=== PATIENT | female | born 1930 | race Caucasian/White ===

== ENCOUNTER 2017-08-28 07:05 | Observation (INO) | payer MEDICARE, BC ==
[2017-08-28] MEDS ORDERED: HYDROmorphone 1 MG/ML Syringe IVPUSH STA (08:35)
--- NOTE | 2017-08-28 08:41 | EDM.PDOC ---
ED HPI GENERAL MEDICAL PROBLEM - General Chief Complaint: Lower Extremity Injury/Pain Stated Complaint: ER Time Seen by Provider: 08/28/17 07:05 Source of Information: Reports: Patient, EMS, EMS Notes Reviewed History Limitations: Reports: No Limitations - History of Present Illness INITIAL COMMENTS - FREE TEXT/NARRATIVE: Patient is brought into the emergency department this morning by EMS for left hip pain. Patient states that she fell approximately 3-4 days ago onto her left hip she tripped over grocery bags that were on the floor. She was able to get up and ambulate rate after the injury. It has been increasing in pain since then. This morning the pain was unbearable and called EMS and transported here. Patient was ambulatory on scene and walked to the cot. In route patient was given medication for her discomfort. Patient denies any shortness of breath dizziness lightheadedness denies any warmth to that extremity or fever. Severity: Moderate Improves with: Reports: Immobilization Worsens with: Reports: Movement Left Hip Pain Score (Numeric/FACES): 5 - Related Data Allergies Allergy/AdvReac Type Severity Reaction Status Date / Time atorvastatin AdvReac Dizziness Verified 08/28/17 08:01 Home Meds: Home Meds Aspirin/Calcium Carbonate/Mag [Aspirin Buffered] 325 mg PO DAILY 04/21/14 [ History] Calcium Carbonate/Vitamin D3 [Calcium 600-Vit D3 400 Tablet] 1 tab PO DAILY [History] Furosemide [Lasix] 20 mg PO DAILY 04/21/14 [History] Multivitamin [Multi-Vitamin Daily] 1 tab PO DAILY 04/21/14 [History] Simvastatin [Zocor] 20 mg PO DAILY 04/21/14 [History] Carboxymethylcellulos/Glycerin [Refresh Optive] 1 drop EYEBOTH DAILY PRN [History] Omeprazole 20 mg PO DAILY 08/28/17 [History] Polyethylene Glycol 3350 [MiraLAX] 17 gm PO DAILY PRN 08/28/17 [History] Past Medical History Cardiovascular History: Reports: High Cholesterol, Pacemaker Other Gastrointestinal History: dysphagia Social & Family History - Tobacco Use Smoking Status *Q: Never Smoker Second Hand Smoke Exposure: No - Alcohol Use Days Per Week of Alcohol Use: 0 - Recreational Drug Use Recreational Drug Use: No Review of Systems - Review of Systems Review Of Systems: See Below Constitutional: Reports: No Symptoms Eyes: Reports: No Symptoms Ears: Reports: No Symptoms Nose: Reports: No Symptoms Mouth/Throat: Reports: No Symptoms Respiratory: Reports: No Symptoms Cardiovascular: Reports: No Symptoms GI/Abdominal: Reports: No Symptoms Genitourinary: Reports: No Symptoms Musculoskeletal: Reports: Muscle Pain (left hip pain. ) Skin: Reports: No Symptoms Neurological: Reports: No Symptoms Psychiatric: Reports: No Symptoms ED EXAM, GENERAL - Physical Exam Exam: See Below Exam Limited By: No Limitations General Appearance: Alert, No Apparent Distress Neck: Normal Inspection, Supple, Non-Tender Respiratory/Chest: No Respiratory Distress, Lungs Clear, Normal Breath Sounds, No Accessory Muscle Use Cardiovascular: Normal Peripheral Pulses, Regular Rate, Rhythm Extremities: Normal Inspection, Normal Capillary Refill, Leg Pain (left hip pain. Tenderness upon palpation, ROM intact, CMS intact. No redness or swelling noted). No: Slow Capillary Refill, Joint Swelling, Increased Warmth, Mottled, Pallor, Redness Neurological: Alert, Oriented, Normal Reflexes Psychiatric: Normal Affect, Normal Mood Skin Exam: Warm, Dry, Intact, Normal Color Course - Vital Signs Last Recorded V/S: Last Vital Signs Temp 36.3 C 08/28/17 10:41 Pulse 65 08/28/17 10:41 Resp 16 08/28/17 10:41 BP 130/68 08/28/17 10:41 Pulse Ox 97 08/28/17 10:41 - Orders/Labs/Meds Orders: Active Orders 24 hr Category Date Time Status Hip Min 2V or 3V w Pelvis Lt [CR] Stat Exams 08/28/17 07:33 Taken Medication Orders Acetaminophen (Tylenol) 650 mg PO Q4H PRN PRN Reason: Pain (Mild 1-3)/fever Hydrocodone Bitart/Acetaminophen ([place] 325-5 Mg) 1 tab PO Q4H PRN PRN Reason: Pain Artificial Tears (Tears Naturale Free) 0 each EYEBOTH DAILY PRN PRN Reason: DRY EYES Calcium Carbonate (Calcium Carbonate/Vitamin D 1250 Mg-200 Unit) 1 tab PO DAILY [facility] Enoxaparin Sodium (Lovenox) 30 mg SUBCUT Q12H [facility] Furosemide (Lasix) 20 mg PO DAILY [facility] Magnesium Hydroxide (Milk Of Magnesia) 30 ml PO Q12H PRN PRN Reason: Constipation Morphine Sulfate (Morphine) 1 mg IVPUSH Q2H PRN PRN Reason: Pain Last Admin: 08/28/17 14:09 Dose: 1 mg Multivitamins/Minerals (Thera M Plus) 1 tab PO DAILY [facility] Omeprazole (Omeprazole) 20 mg PO DAILY@0700 [facility] Ondansetron HCl (Zofran) 4 mg IVPUSH Q8H PRN PRN Reason: Nausea Polyethylene Glycol (Miralax) 17 gm PO DAILY PRN PRN Reason: Constipation Last Admin: 08/28/17 14:15 Dose: 17 gm Polyethylene Glycol (Miralax) 17 gm PO DAILY PRN PRN Reason: CONSTIPATION Simvastatin (Zocor) 20 mg PO BEDTIME [facility] Meds: Medications Generic Name Dose Route Start Last Admin Trade Name Freq PRN Reason Stop Dose Admin Acetaminophen 650 mg 08/28/17 11:22 Tylenol PO Q4H PRN Pain (Mild 1-3)/fever Hydrocodone Bitart/Acetaminophen 1 tab 08/28/17 12:26 [place] 325-5 Mg PO Q4H PRN Pain Artificial Tears 0 each 08/28/17 14:30 Tears Naturale Free EYEBOTH DAILY PRN DRY EYES Calcium Carbonate 1 tab 08/29/17 08:00 Calcium Carbonate/Vitamin D 1250 Mg-200 Unit PO DAILY [facility] Enoxaparin Sodium 30 mg 08/28/17 14:45 Lovenox SUBCUT Q12H [facility] Furosemide 20 mg 08/29/17 08:00 Lasix PO DAILY [facility] Magnesium Hydroxide 30 ml 08/28/17 11:22 Milk Of Magnesia PO Q12H PRN Constipation Morphine Sulfate 1 mg 08/28/17 12:43 08/28/17 14:09 Morphine IVPUSH 1 mg Q2H PRN Administration Pain Multivitamins/Minerals 1 tab 08/29/17 08:00 Thera M Plus PO DAILY [facility] Omeprazole 20 mg 08/29/17 07:00 Omeprazole PO DAILY@0700 [facility] Ondansetron HCl 4 mg 08/28/17 12:25 Zofran IVPUSH Q8H PRN Nausea Polyethylene Glycol 17 gm 08/28/17 11:22 08/28/17 14:15 Miralax PO 17 gm DAILY PRN Administration Constipation Polyethylene Glycol 17 gm 08/28/17 14:30 Miralax PO DAILY PRN CONSTIPATION Simvastatin 20 mg 08/28/17 20:00 Zocor PO BEDTIME [facility] Discontinued Medications Generic Name Dose Route Start Last Admin Trade Name [place] PRN Reason Stop Dose Admin Hydromorphone HCl 1 mg 08/28/17 08:35 08/28/17 10:05 Dilaudid IVPUSH 08/28/17 08:36 1 mg NOW STA Administration Hydromorphone HCl 0.5 mg 08/28/17 10:46 Dilaudid IVPUSH Q1H PRN Pain (severe 7-10) Morphine Sulfate 1 mg 08/28/17 13:00 Morphine IVPUSH Q2H [facility] Ondansetron HCl 4 mg 08/28/17 10:46 08/28/17 11:30 Zofran IVPUSH 08/28/17 10:47 4 mg ONETIME ONE Administration Ondansetron HCl 4 mg 08/28/17 11:22 Zofran Odt PO Q6H PRN nausea, able to take PO Departure - Departure Time of Disposition: 10:30 Disposition: Refer to Observation Clinical Impression: Left hip pain - Discharge Information - My Orders Last 24 Hours: My Active Orders 08/28/17 07:33 Hip Min 2V or 3V w Pelvis Lt [CR] Stat - Assessment/Plan Last 24 Hours: My Active Orders 08/28/17 07:33 Hip Min 2V or 3V w Pelvis Lt [CR] Stat Assessment:: 1. left hip pain with resent fall 3-4 days ago Plan: 1. Xray of left hip. Results reviewed with the pt 2. Dilaudid given for pain control in the ER. Pt was ambulatory at the scene and walked out to the EMS cot. Pt in ER is refusing to walk because of the pain. She denies it being any worse than at home and is actually better pain rating with Dilaudid given however she is unable to ambulate or want to bear weight because of the pain she states she is experiencing. 3. Pt will be admitted to observation for pain control 4. General lab studies completed on the floor 5. Pt will be admitted to [facility] for observation due to continued pain and inability to bear weight because of the pain. The hopes is consult PT/OT work with muscle tension in the hip.
[2017-08-28] MEDS ORDERED: Ondansetron 4 MG/2 ML SDV IVPUSH ONE (10:46)
[2017-08-28] MEDS ORDERED: HYDROmorphone 1 MG/ML Syringe IVPUSH PRN (10:46)
[2017-08-28] MEDS ORDERED: Ondansetron 4 MG Tab.DIS PO PRN (11:22)
[2017-08-28] MEDS ORDERED: Acetaminophen 325 MG Tab PO PRN (11:22)
[2017-08-28] MEDS ORDERED: Magnesium Hydroxide 400 MG/5 ML Susp 30 ML Cup PO PRN (11:22)
[2017-08-28] MEDS ORDERED: Polyethylene Glycol 3350 Powder 17 GM Packet PO PRN ×2 (11:22→14:30)
[2017-08-28] MEDS ORDERED: Ondansetron 4 MG/2 ML SDV IVPUSH PRN (12:25)
[2017-08-28] MEDS ORDERED: Morphine 2 MG/ML Syringe IVPUSH PRN (12:43)
[2017-08-28] MEDS ORDERED: Morphine 2 MG/ML Syringe IVPUSH SCH (13:00)
--- NOTE | 2017-08-28 14:08 | PCM.HP ---
H&P History of Present Illness - General Date of Service: 08/28/17 Admit Problem/Dx: Admission Diagnosis/Problem Admission Diagnosis/Problem Left Hip contusion Impaired Mobility secondary to pain Fall Source of Information: Patient, EMS Notes Reviewed, Old Records, RN, RN Notes Reviewed History Limitations: Reports: No Limitations - History of Present Illness Initial Comments - Free Text/Narative: Patient is brought into the emergency department earlier this morning by EMS for left hip pain. Patient states that she fell approximately 3-4 days ago onto her left hip she tripped over grocery bags that were on the floor. She was able to get up and ambulate just after the injury. It has been increasing in pain since then. This morning the pain was unbearable and she called EMS and transported here. Patient was ambulatory on scene and walked to the cot. In route patient was given medication for her discomfort. Patient denies any shortness of breath dizziness lightheadedness denies any warmth to that extremity or fever. Patient denies any head injury or trauma. No history of frequent falls. Symptom Onset Date: 08/25/17 Duration of Symptoms: Reports: Waxing/Waning Location: Reports: Pelvis (Left) Quality: Reports: Sharp, Stabbing Severity: Severe Improves with: Reports: Rest Worsens with: Reports: Movement Context: Reports: Trauma Associated Symptoms: Reports: Nausea/Vomiting Left Hip Pain Score (Numeric/FACES): 5 - Related Data Allergies/Adverse Reactions: Allergies Allergy/AdvReac Type Severity Reaction Status Date / Time atorvastatin AdvReac Dizziness Verified 08/28/17 08:01 Home Medications: Home Meds Aspirin/Calcium Carbonate/Mag [Aspirin Buffered] 325 mg PO DAILY 04/21/14 [ History] Calcium Carbonate/Vitamin D3 [Calcium 600-Vit D3 400 Tablet] 1 tab PO DAILY [History] Furosemide [Lasix] 20 mg PO DAILY 04/21/14 [History] Multivitamin [Multi-Vitamin Daily] 1 tab PO DAILY 04/21/14 [History] Simvastatin [Zocor] 20 mg PO DAILY 04/21/14 [History] Carboxymethylcellulos/Glycerin [Refresh Optive] 1 drop EYEBOTH DAILY PRN [History] Omeprazole 20 mg PO DAILY 08/28/17 [History] Polyethylene Glycol 3350 [MiraLAX] 17 gm PO DAILY PRN 08/28/17 [History] Past Medical History Cardiovascular History: Reports: Afib, Heart Valve Replacement (AVR 08/03/2012) , High Cholesterol, 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 Denies: Fever, Chills Pulmonary: Denies: Shortness of Breath, Cough Cardiovascular: Denies: Chest Pain, Palpitations Gastrointestinal: Reports: Nausea, Vomiting. Denies: Abdominal Pain Musculoskeletal: Reports: Joint Pain, Muscle Pain, Muscle Stiffness, Other ( left upper pelvic pain) Skin: Reports: No Symptoms Neurological: Denies: Dizziness, Headache, Numbness, Paresthesia, Tingling Exam - Exam Exam: See Below - Vital Signs Vital Signs: Last Vital Signs Temp 36.3 C 08/28/17 10:41 Pulse 65 08/28/17 10:41 Resp 16 08/28/17 10:41 BP 130/68 08/28/17 10:41 Pulse Ox 97 08/28/17 10:41 Weight: 45.359 kg - Exam General: Alert, Oriented, Cooperative, Mild Distress Lungs: Clear to Auscultation, Normal Respiratory Effort Cardiovascular: Regular Rate, Regular Rhythm, Normal S1, Normal S2 GI/Abdominal Exam: Normal Bowel Sounds, Soft, Non-Tender Back Exam: Normal Inspection Extremities: Limited Range of Motion (Left leg due to pain; no evidence of bruising; very tender to palpation left upper ischial area) Peripheral Pulses: 1+: Posterior Tibial (L), Posterior Tibial (R), Dorsalis Pedis (L), Dorsalis Pedis (R) Skin: Warm, Dry, Intact Neuro Extensive - Mental Status: Alert - Patient Data Lab Results Last 24 hrs: Laboratory Results - last 24 hr 08/28/17 08/28/17 Range/Units 11:38 11:38 WBC 7.2 (4.0-10.0) x10^3/uL RBC 3.91 L (4.00-5.50) x10^6/uL Hgb 12.2 D (12.0-16.0) g/dL Hct 38.1 (33.0-47.0) % MCV 97.4 H D (78.0-93.0) fL MCH 31.2 (26.0-32.0) pg MCHC 32.0 (32.0-36.0) g/dL RDW Coeff of [place] 14.3 (10.0-15.0) % Plt Count 149 (130-400) x10^3/uL Neut % (Auto) 72.6 (50.0-80.0) % Lymph % (Auto) 14.7 L (25.0-50.0) % [place] % (Auto) 12.1 H (2.0-11.0) % Eos % (Auto) 0.3 (0.0-4.0) % Baso % (Auto) 0.3 (0.2-1.2) % Sodium 144 (136-145) mmol/L Potassium 3.9 (3.5-5.1) mmol/L Chloride 106 (98-107) mmol/L Carbon Dioxide 27 (21-32) mmol/L BUN 15 (7-18) mg/dL Creatinine 0.9 (0.55-1.02) mg/dL Est Cr Clr Drug Dosing 32.72 mL/min Estimated GFR (MDRD) 60 Glucose 127 H (74-106) mg/dL Calcium 9.2 (8.5-10.1) mg/dL Corrected Calcium 9.36 (8.5-10.1) mg/dL Total Bilirubin 0.8 (0.2-1.0) mg/dL AST 30 (15-37) U/L ALT 21 (14-59) U/L Alkaline Phosphatase 62 (46-116) U/L Total Protein 7.3 (6.4-8.2) g/dL Albumin 3.8 (3.4-5.0) g/dL Globulin 3.5 Albumin/Globulin Ratio 1.09 Result Diagrams: 08/28/17 11:38 08/28/17 11:38 *Q Meaningful Use (ADM) - VTE *Q VTE Mechanical Contraindications *Q: At Risk for Falls - Problem List (1) Contusion of hip, left SNOMED Code(s): 57719724 ICD Code: S70.02XA - CONTUSION OF LEFT HIP, INITIAL ENCOUNTER Status: Acute Priority: Medium Current Visit: Yes Qualifiers: Encounter type: initial encounter Qualified Code(s): S70.02XA - Contusion of left hip, initial encounter (2) Impaired mobility SNOMED Code(s): 11416193 ICD Code: Z74.09 - OTHER REDUCED MOBILITY Status: Acute Priority: Medium Current Visit: Yes (3) Fall from slipping on ice SNOMED Code(s): 736450826 ICD Code: W00.9XXA - UNSPECIFIED FALL DUE TO ICE AND SNOW, INITIAL ENCOUNTER Status: Acute Priority: Medium Current Visit: Yes Qualifiers: Encounter type: initial encounter Qualified Code(s): W00.9XXA - Unspecified fall due to ice and snow, initial encounter (4) Atrial fibrillation SNOMED Code(s): 16673380 ICD Code: I48.91 - UNSPECIFIED ATRIAL FIBRILLATION Status: Chronic Current Visit: No Qualifiers: Atrial fibrillation type: chronic Qualified Code(s): I48.2 - Chronic atrial fibrillation (5) Dyslipidemia SNOMED Code(s): 105321252 ICD Code: E78.5 - HYPERLIPIDEMIA, UNSPECIFIED Status: Chronic Current Visit: No (6) GERD (gastroesophageal reflux disease) SNOMED Code(s): 023793356 ICD Code: K21.9 - GASTRO-ESOPHAGEAL REFLUX DISEASE WITHOUT ESOPHAGITIS Status: Chronic Current Visit: No Qualifiers: Esophagitis presence: without esophagitis Qualified Code(s): K21.9 - Gastro -esophageal reflux disease without esophagitis (7) Iron deficiency anemia due to chronic blood loss SNOMED Code(s): 584751090 ICD Code: D50.0 - IRON DEFICIENCY ANEMIA SECONDARY TO BLOOD LOSS (CHRONIC) Status: Chronic Current Visit: No (8) Aortic valve replaced SNOMED Code(s): 9765660916502, 16185343, 3938140131272 ICD Code: Z95.2 - PRESENCE OF PROSTHETIC HEART VALVE Status: Chronic Current Visit: No (9) Pacemaker SNOMED Code(s): 224993295 ICD Code: Z95.0 - PRESENCE OF CARDIAC PACEMAKER Status: Chronic Current Visit: No Problem List Initiated/Reviewed/Updated: Yes Orders Last 24hrs: Active Orders 24 hr Category Date Time Status Patient Status [ADT] Routine ADT 08/28/17 11:22 Active Intake and Output [RC] 06,18 Care 08/28/17 11:23 Active May Shower [RC] ASDIRECTED Care 08/28/17 11:22 Active Oxygen Therapy [RC] .PRN Care 08/28/17 11:22 Active Up ad Loren [RC] 08,20 Care 08/28/17 10:45 Active VTE/DVT Education [RC] .PRN Care 08/28/17 11:22 Active Vital Signs [RC] 06,10,14,18,22,02 Care 08/28/17 10:41 Active Vital Signs [RC] Q4H Care 08/28/17 10:45 Active Consult to Case Management [CONS] Routine Cons 08/28/17 11:22 Active OT Evaluation and Treatment [CONS] Routine Cons 08/28/17 11:22 Active PT Evaluation and Treatment [CONS] Routine Cons 08/28/17 11:22 Active Regular Diet [DIET] Diet 08/28/17 Lunch Active Hip Min 2V or 3V w Pelvis Lt [CR] Stat Exams 08/28/17 07:33 Taken UA W/MICROSCOPIC [URIN] Routine Lab 08/28/17 12:25 Ordered Acetaminophen [Tylenol] Med 08/28/17 11:22 Active 650 mg PO Q4H PRN Acetaminophen/HYDROcodone [[place] 325-5 MG] Med 08/28/17 12:26 Active 1 tab PO Q4H PRN Magnesium Hydroxide [Milk of Magnesia] Med 08/28/17 11:22 Active 30 ml PO Q12H PRN Morphine Med 08/28/17 12:43 Active 1 mg IVPUSH Q2H PRN Ondansetron [Zofran] Med 08/28/17 12:25 Active 4 mg IVPUSH Q8H PRN Polyethylene Glycol 3350 [MiraLAX] Med 08/28/17 11:22 Active 17 gm PO DAILY PRN Resuscitation Status Routine Resus Stat 08/28/17 10:40 Ordered Medication Orders Acetaminophen (Tylenol) 650 mg PO Q4H PRN PRN Reason: Pain (Mild 1-3)/fever Hydrocodone Bitart/Acetaminophen ([place] 325-5 Mg) 1 tab PO Q4H PRN PRN Reason: Pain Magnesium Hydroxide (Milk Of Magnesia) 30 ml PO Q12H PRN PRN Reason: Constipation Morphine Sulfate (Morphine) 1 mg IVPUSH Q2H PRN PRN Reason: Pain Ondansetron HCl (Zofran) 4 mg IVPUSH Q8H PRN PRN Reason: Nausea Polyethylene Glycol (Miralax) 17 gm PO DAILY PRN PRN Reason: Constipation Assessment/Plan Comment:: 87-year-old female patient with a past medical history of atrial fibrillation, dyslipidemia, gastroesophageal reflux disease, anemia chronic disease, is admitted to the observation unit at [facility] for a diagnosis of left hip contusion, impaired mobility, fall. The patient wishes to BE a full code. The patient does wish to be transferred to a higher level care should the need arise. We will have PT and OT see this patient, hopefully today. The patient will be given IV and by mouth pain medication as needed. I will recheck a urine today. The patient's blood work looked okay. We will continue this patient's home medications without any changes. I do anticipate an admission less than 48 hours. The patient will be started on Lovenox for DVT prophylaxis. Note: This patient is seen and examined by me as an [facility] provider.
[2017-08-28] MEDS ORDERED: Dextran 70/Hypromellose/PF Ophth Soln 0.9 ML UD EYEBOTH PRN (14:30)
[2017-08-28] MEDS ORDERED: Enoxaparin 40 MG/0.4 ML Syringe SUBCUT SCH (16:00)
[2017-08-28] MEDS: Acetaminophen/HYDROcodone 325-5 MG Tab PO PRN ×2 (16:14→20:00)
[2017-08-28] MEDS ORDERED: Simvastatin 20 MG Tab PO SCH (20:00)
[2017-08-29] MEDS: Acetaminophen/HYDROcodone 325-5 MG Tab PO PRN ×3 (03:26→12:26)
[2017-08-29] MEDS ORDERED: Omeprazole 20 MG Cap.CR PO SCH (07:00)
[2017-08-29] MEDS ORDERED: Multivitamins with Iron/Calcium/Folic Acid/Minerals Tab PO SCH (08:00)
[2017-08-29] MEDS ORDERED: Furosemide 20 MG Tab PO SCH (08:00)
[2017-08-29] MEDS ORDERED: Calcium Carbonate/Vitamin D3 1250 MG-200 Unit Tab PO SCH (08:00)
[2017-08-29 10:20] VITALS: BP 95/45
--- NOTE | 2017-08-29 10:28 | PCM.DCSUM1 ---
Discharge Summary - Hospital Course HPI Initial Comments: Patient is brought into the emergency department yesterday by EMS for left hip pain. Patient states that she fell approximately 3-4 days ago onto her left hip she tripped over grocery bags that were on the floor. She was able to get up and ambulate just after the injury. It has been increasing in pain since then. Yesterday morning the pain was unbearable and she called EMS and transported here. Patient was ambulatory on scene and walked to the cot. In route patient was given medication for her discomfort. Patient denies any shortness of breath dizziness lightheadedness denies any warmth to that extremity or fever. Patient denies any head injury or trauma. No history of frequent falls. - Discharge Data Discharge Date: 08/29/17 Discharge Disposition: Home, Self-Care 01 Condition: Good - Discharge Diagnosis/Problem(s) (1) Contusion of hip, left SNOMED Code(s): 99470022 ICD Code: S70.02XA - CONTUSION OF LEFT HIP, INITIAL ENCOUNTER Status: Acute Priority: Medium Current Visit: Yes Qualifiers: Encounter type: initial encounter Qualified Code(s): S70.02XA - Contusion of left hip, initial encounter (2) Impaired mobility SNOMED Code(s): 43221291 ICD Code: Z74.09 - OTHER REDUCED MOBILITY Status: Acute Priority: Medium Current Visit: Yes (3) Fall from slipping on ice SNOMED Code(s): 043604654 ICD Code: W00.9XXA - UNSPECIFIED FALL DUE TO ICE AND SNOW, INITIAL ENCOUNTER Status: Acute Priority: Medium Current Visit: Yes Qualifiers: Encounter type: initial encounter Qualified Code(s): W00.9XXA - Unspecified fall due to ice and snow, initial encounter (4) Atrial fibrillation SNOMED Code(s): 19737749 ICD Code: I48.91 - UNSPECIFIED ATRIAL FIBRILLATION Status: Chronic Current Visit: No Qualifiers: Atrial fibrillation type: chronic Qualified Code(s): I48.2 - Chronic atrial fibrillation (5) Dyslipidemia SNOMED Code(s): 513449767 ICD Code: E78.5 - HYPERLIPIDEMIA, UNSPECIFIED Status: Chronic Current Visit: No (6) GERD (gastroesophageal reflux disease) SNOMED Code(s): 471112136 ICD Code: K21.9 - GASTRO-ESOPHAGEAL REFLUX DISEASE WITHOUT ESOPHAGITIS Status: Chronic Current Visit: No Qualifiers: Esophagitis presence: without esophagitis Qualified Code(s): K21.9 - Gastro -esophageal reflux disease without esophagitis (7) Iron deficiency anemia due to chronic blood loss SNOMED Code(s): 274139620 ICD Code: D50.0 - IRON DEFICIENCY ANEMIA SECONDARY TO BLOOD LOSS (CHRONIC) Status: Chronic Current Visit: No (8) Aortic valve replaced SNOMED Code(s): 7922500339958, 47454972, 8516828417588 ICD Code: Z95.2 - PRESENCE OF PROSTHETIC HEART VALVE Status: Chronic Current Visit: No (9) Pacemaker SNOMED Code(s): 471134636 ICD Code: Z95.0 - PRESENCE OF CARDIAC PACEMAKER Status: Chronic Current Visit: No - Patient Summary/Data Operative Procedure(s) Performed: None Consults: Consultations 08/28/17 11:22 Consult to Case Management [CONS] Routine OT Evaluation and Treatment [CONS] Routine PT Evaluation and Treatment [CONS] Routine Labs Pending at D/C: None Recommended Follow-up Testing/Procedures: None Planned Operative Procedure(s) after DC: None Hospital Course: Overall, the patient did well during her hospital stay. She was seen by physical therapy yesterday who recommend home therapy exercises. Patient's mobility has increase well. She has been steady on her feet and ambulating ok. She continue to have pain to the left hip. No issues with urination or BM's. Tolerated diet ok. No N/V/D. No chest pain or SOB. - Patient Instructions Diet: Heart Healthy Diet Activity: No Strenuous Activities, Rest and Relax Today Driving: Do Not Drive Showering/Bathing: May Shower Notify Provider of: Fever, Increased Pain, Nausea and/or Vomiting - Discharge Plan Prescriptions/Med Rec: Acetaminophen/HYDROcodone [Stacy 325-5 MG] 1 tab PO Q4H PRN #20 tablet PRN Reason: Pain Home Medications: Home Meds Aspirin/Calcium Carbonate/Mag [Aspirin Buffered] 325 mg PO DAILY 04/21/14 [ History] Calcium Carbonate/Vitamin D3 [Calcium 600-Vit D3 400 Tablet] 1 tab PO DAILY [History] Furosemide [Lasix] 20 mg PO DAILY 04/21/14 [History] Multivitamin [Multi-Vitamin Daily] 1 tab PO DAILY 04/21/14 [History] Simvastatin [Zocor] 20 mg PO DAILY 04/21/14 [History] Carboxymethylcellulos/Glycerin [Refresh Optive] 1 drop EYEBOTH DAILY PRN [History] Omeprazole 20 mg PO DAILY 08/28/17 [History] Polyethylene Glycol 3350 [MiraLAX] 17 gm PO DAILY PRN 08/28/17 [History] Acetaminophen/HYDROcodone [Stacy 325-5 MG] 1 tab PO Q4H PRN #20 tablet 08/29/17 [Rx] Patient Handouts: Contusion Referrals: Joseph Marques MD [ED Physician] - 09/08/17 (Follow up with Dr. Marques at your next scheduled appointment.) - Discharge Summary/Plan Comment DC Time >30 min.: No - General Info Date of Service: 08/29/17 Admission Dx/Problem (Free Text: Admission Diagnosis/Problem Admission Diagnosis/Problem Left Hip contusion Impaired Mobility secondary to pain Fall Subjective Update: Patient states she continues to have left hip pain when moving around. No pain at rest. Otherwise, she is doing well with out any other complaints. Functional Status: Reports: Pain Controlled, Tolerating Diet, Ambulating, Urinating Numeric/FACES Score: 0 - Review of Systems General: Denies: Fever, Weakness Pulmonary: Denies: Shortness of Breath, Cough Cardiovascular: Denies: Chest Pain, Palpitations Gastrointestinal: Denies: Abdominal Pain, Nausea, Vomiting Musculoskeletal: Reports: Joint Pain (Left hip pain) Skin: Reports: No Symptoms Neurological: Reports: No Symptoms - Patient Data Vitals - Most Recent: Last Vital Signs Temp 36.8 C 08/29/17 10:00 Pulse 70 08/29/17 10:00 Resp 16 08/29/17 10:00 BP 95/45 L 08/29/17 10:00 Pulse Ox 96 08/29/17 10:00 Weight - Most Recent: 45.359 kg I&O - Last 24 hours: Intake & Output 08/28/17 08/29/17 08/29/17 22:59 06:59 14:59 Intake Total 490 600 400 Output Total 150 950 100 Balance 340 -350 300 Lab Results - Last 24 hrs: Laboratory Results - last 24 hr 08/28/17 08/28/17 08/28/17 Range/Units 11:38 11:38 16:20 WBC 7.2 (4.0-10.0) x10^3/uL RBC 3.91 L (4.00-5.50) x10^6/uL Hgb 12.2 D (12.0-16.0) g/dL Hct 38.1 (33.0-47.0) % MCV 97.4 H D (78.0-93.0) fL MCH 31.2 (26.0-32.0) pg MCHC 32.0 (32.0-36.0) g/dL RDW Coeff of [place]er 14.3 (10.0-15.0) % Plt Count 149 (130-400) x10^3/uL Neut % (Auto) 72.6 (50.0-80.0) % Lymph % (Auto) 14.7 L (25.0-50.0) % [place] % (Auto) 12.1 H (2.0-11.0) % Eos % (Auto) 0.3 (0.0-4.0) % Baso % (Auto) 0.3 (0.2-1.2) % Sodium 144 (136-145) mmol/L Potassium 3.9 (3.5-5.1) mmol/L Chloride 106 (98-107) mmol/L Carbon Dioxide 27 (21-32) mmol/L BUN 15 (7-18) mg/dL Creatinine 0.9 (0.55-1.02) mg/dL Est Cr Clr Drug Dosing 32.72 mL/min Estimated GFR (MDRD) 60 Glucose 127 H (74-106) mg/dL Calcium 9.2 (8.5-10.1) mg/dL Corrected Calcium 9.36 (8.5-10.1) mg/dL Total Bilirubin 0.8 (0.2-1.0) mg/dL AST 30 (15-37) U/L ALT 21 (14-59) U/L Alkaline Phosphatase 62 (46-116) U/L Total Protein 7.3 (6.4-8.2) g/dL Albumin 3.8 (3.4-5.0) g/dL Globulin 3.5 Albumin/Globulin Ratio 1.09 Urine Color Maria Isabel H (YELLOW) Urine Appearance Cloudy H (CLEAR) Urine pH 5.0 (5.0-8.0) Ur Specific [place] 1.025 Urine Protein 30 H (NEGATIVE) mg/dL Urine Glucose (UA) Negative (NEGATIVE) mg/dL Urine Ketones 15 H (NEGATIVE) mg/dL Urine Occult Blood Trace-intact H (NEGATIVE) Urine Nitrite Negative (NEGATIVE) Urine Bilirubin Small H (NEGATIVE) Urine Urobilinogen 0.2 (0.2) EU/dL Ur Leukocyte Esterase Negative (NEGATIVE) Urine RBC 0-5 (NOT SEEN) /HPF Urine WBC 0-5 (NOT SEEN) /HPF Ur Squamous Epith Cells Few H (NEGATIVE) /HPF Urine Bacteria Rare (NEGATIVE) /HPF Urine Mucus Many H (NEGATIVE) /LPF Med Orders - Current: Current Medications Acetaminophen (Tylenol) 650 mg PO Q4H PRN PRN Reason: Pain (Mild 1-3)/fever Hydrocodone Bitart/Acetaminophen (Stacy 325-5 Mg) 1 tab PO Q4H PRN PRN Reason: Pain Last Admin: 08/29/17 07:36 Dose: 1 tab Artificial Tears (Tears Naturale Free) 0 each EYEBOTH DAILY PRN PRN Reason: DRY EYES Calcium Carbonate (Calcium Carbonate/Vitamin D 1250 Mg-200 Unit) 1 tab PO DAILY [facility] Last Admin: 08/29/17 07:35 Dose: 1 tab Enoxaparin Sodium (Lovenox) 40 mg SUBCUT Q24H [facility] Last Admin: 08/28/17 16:15 Dose: 40 mg Furosemide (Lasix) 20 mg PO DAILY [facility] Last Admin: 08/29/17 07:35 Dose: 20 mg Magnesium Hydroxide (Milk Of Magnesia) 30 ml PO Q12H PRN PRN Reason: Constipation Morphine Sulfate (Morphine) 1 mg IVPUSH Q2H PRN PRN Reason: Pain Last Admin: 08/28/17 14:09 Dose: 1 mg Multivitamins/Minerals (Thera M Plus) 1 tab PO DAILY [facility] Last Admin: 08/29/17 07:35 Dose: 1 tab Omeprazole (Omeprazole) 20 mg PO DAILY@0700 [facility] Last Admin: 08/29/17 06:18 Dose: 20 mg Ondansetron HCl (Zofran) 4 mg IVPUSH Q8H PRN PRN Reason: Nausea Polyethylene Glycol (Miralax) 17 gm PO DAILY PRN PRN Reason: Constipation Last Admin: 08/28/17 14:15 Dose: 17 gm Polyethylene Glycol (Miralax) 17 gm PO DAILY PRN PRN Reason: CONSTIPATION Last Admin: 08/29/17 07:36 Dose: 17 gm Simvastatin (Zocor) 20 mg PO BEDTIME [facility] Last Admin: 08/28/17 19:42 Dose: 20 mg Discontinued Medications Hydromorphone HCl (Dilaudid) 1 mg IVPUSH NOW STA Stop: 08/28/17 08:36 Last Admin: 08/28/17 10:05 Dose: 1 mg Hydromorphone HCl (Dilaudid) 0.5 mg IVPUSH Q1H PRN PRN Reason: Pain (severe 7-10) Morphine Sulfate (Morphine) 1 mg IVPUSH Q2H [facility] Ondansetron HCl (Zofran) 4 mg IVPUSH ONETIME ONE Stop: 08/28/17 10:47 Last Admin: 08/28/17 11:30 Dose: 4 mg Ondansetron HCl (Zofran Odt) 4 mg PO Q6H PRN PRN Reason: nausea, able to take PO - Exam General: Reports: Alert, Oriented, Cooperative, No Acute Distress Lungs: Reports: Clear to Auscultation, Normal Respiratory Effort Cardiovascular: Reports: Regular Rate, Regular Rhythm GI/Abdominal Exam: Normal Bowel Sounds, Soft, Non-Tender Extremities: Normal Inspection, Other (some mild tenderness to left upper hip) Skin: Reports: Warm, Dry, Intact Neurological: Reports: No New Focal Deficit *Q Meaningful Use (DIS) - VTE *Q VTE Mechanical Contraindications *Q: At Risk for Falls
== END 2017-08-29 12:40 | disposition home or self-care (01) ==
LOC: VM.ED 07:05 → VM.MS 10:37
PROVIDERS: ADMIT Nurse Practitioner Family; ATTEND Nurse Practitioner Family
DX: S70.02XA Contusion of left hip, initial encounter (principal); I48.2 Chronic atrial fibrillation; E78.5 Hyperlipidemia, unspecified; K21.9 Gastro-esophageal reflux disease without esophagitis; D50.0 Iron deficiency anemia secondary to blood loss (chronic); Z79.899 Other long term (current) drug therapy; W01.0XXA Fall on same level from slipping, tripping and stumbling without subsequent striking against object, initial encounter; Z74.09 Other reduced mobility; Z95.2 Presence of prosthetic heart valve; Z95.0 Presence of cardiac pacemaker; Z79.82 Long term (current) use of aspirin; Z88.8 Allergy status to other drugs, medicaments and biological substances
CPT/HCPCS: 36415; 73502; 80053; 81001; 85025; 96374; 97161; 99284; A9270; J1170; J1650; J2270; J2405; 96372; 96375; G0378

== ENCOUNTER 2021-09-26 12:00 | Emergency (ER) | payer MEDICARE, BC ==
[2021-09-26 13:33] LABS: ANION GAP 10.8 mmol/L (5-15); CHLORIDE,CL 101 mmol/L (98-107); SODIUM,NA 136 mmol/L (136-145)
[2021-09-26] MEDS ORDERED: Iopamidol 755 Mg/ML 100 ML Bottle IVPUSH ONE (13:53)
[2021-09-26] MEDS ORDERED: Furosemide 40 MG/4 ML VIAL IV ONE (14:03)
[2021-09-26 17:14] VITALS: PULSE 73
[2021-09-26 17:16] VITALS: BP 99/54
== END 2021-09-26 16:35 | disposition short-term general hospital (02) ==
LOC: VM.ED 12:00
DX: I50.9 Heart failure, unspecified (principal); I48.91 Unspecified atrial fibrillation; I25.10 Atherosclerotic heart disease of native coronary artery without angina pectoris; E78.00 Pure hypercholesterolemia, unspecified; Z95.1 Presence of aortocoronary bypass graft; Z88.8 Allergy status to other drugs, medicaments and biological substances
CPT/HCPCS: 36415; 71045; 71275; 80053; 82550; 83615; 83880; 84484; 85025; 85379; 86140; 93005; 93010; 96374; 99284; 99285-25; J1940; Q9967

== ENCOUNTER 2021-12-18 08:50 | Emergency (ER) | payer MEDICARE, BC ==
[2021-12-18] MEDS ORDERED: Sodium Chloride 0.9% 10 ML Syringe FLUSH PRN (09:07)
[2021-12-18] MEDS ORDERED: Morphine 4 MG/ML Syringe IVPUSH ONE (09:08)
[2021-12-18] MEDS ORDERED: Sodium Chloride 0.9% 1,000 ML IV SCH ×2 (09:15→11:00)
[2021-12-18 09:28] LABS: ANION GAP 10.4 mmol/L (5-15); CHLORIDE,CL 103 mmol/L (98-107); ESTIMATED GFR 61 mL/min (>=60); SODIUM,NA 138 mmol/L (136-145)
[2021-12-18] MEDS ORDERED: Morphine 2 MG/ML SYRINGE IVPUSH PRN (10:52)
[2021-12-18] MEDS ORDERED: Morphine 4 MG/ML Syringe IVPUSH PRN (11:41)
[2021-12-18] MEDS ORDERED: Morphine 2 MG/ML SYRINGE IVPUSH ONE (11:44)
[2021-12-18 15:58] VITALS: BP 96/69; PULSE 98
== END 2021-12-18 15:34 | disposition short-term general hospital (02) ==
LOC: VM.ED 08:50
DX: S72.142A Displaced intertrochanteric fracture of left femur, initial encounter for closed fracture (principal); I25.10 Atherosclerotic heart disease of native coronary artery without angina pectoris; K21.9 Gastro-esophageal reflux disease without esophagitis; E78.00 Pure hypercholesterolemia, unspecified; Z88.8 Allergy status to other drugs, medicaments and biological substances; Z79.899 Other long term (current) drug therapy; Z79.82 Long term (current) use of aspirin; W01.10XA Fall on same level from slipping, tripping and stumbling with subsequent striking against unspecified object, initial encounter
CPT/HCPCS: 51702; 70450; 71045; 72040; 80053; 81001; 83605; 83735; 84484; 85025; 85610; 85730; 93005; 93010; 96374; 96376; 99285; 99285-25; J2270; J7030

== ENCOUNTER 2021-12-28 18:55 | Emergency (ER) | payer MEDICARE, BC ==
[2021-12-28] MEDS ORDERED: Sodium Chloride 0.9% 500 ML IV ONE (19:10)
[2021-12-28 20:24] LABS: CHLORIDE,CL 102 mmol/L (98-107); SODIUM,NA 135 mmol/L (136-145)
[2021-12-28 20:27] LABS: ANION GAP 9.1 mmol/L (5-15); ESTIMATED GFR 54 mL/min (>=60)
== END 2021-12-28 21:15 | disposition home or self-care (01) ==
LOC: VM.ED 18:55
DX: S00.12XA Contusion of left eyelid and periocular area, initial encounter (principal); I48.91 Unspecified atrial fibrillation; I25.10 Atherosclerotic heart disease of native coronary artery without angina pectoris; I11.0 Hypertensive heart disease with heart failure; I50.9 Heart failure, unspecified; E03.9 Hypothyroidism, unspecified; K21.9 Gastro-esophageal reflux disease without esophagitis; E78.00 Pure hypercholesterolemia, unspecified; Z88.8 Allergy status to other drugs, medicaments and biological substances; Z79.899 Other long term (current) drug therapy; Z95.0 Presence of cardiac pacemaker; W01.0XXA Fall on same level from slipping, tripping and stumbling without subsequent striking against object, initial encounter
CPT/HCPCS: 36415; 70450; 71045; 80048; 85025; 85610; 96360; 96361; 99284; 99284-25; J7040